=== PATIENT | male | born 1980 | race Caucasian/White ===

== ENCOUNTER 2018-09-13 14:38 | Emergency (ER) | payer BC ==
[2018-09-13 15:23] VITALS: BP 144/75
--- NOTE | 2018-09-13 15:25 | UC ---
FLU HPI - HPI Summary HPI Summary: Onset of fever x 3 days ago, associated with body aches. Yesterday, following his work day, he felt very weak and unwell. Hx of hypertension treated with bisoprolol. He has not taken his anti-hypertensive since yesterday morning, and has not chest pain or palpitations. Minimal cough, no sore throat, no nausea, vomiting, abdominal pain or diarrhea. No headache. - History of Current Complaint Chief Complaint: UCRespiratory Stated Complaint: FEVER Time Seen by Provider: 09/13/18 15:18 Hx Obtained From: Patient Onset/Duration: Gradual Onset, Lasting Days - 3 Severity Currently: Mild Severity Initially: Moderate Pain Intensity: 5 Associated Signs & Symptoms: Positive: Fever, Myalgia. Negative: Cough - no temp taken at home., Sore Throat, Nasal Congestion, Headache, Vomiting, Diarrhea - Risk Factors Influenza Risk Factors: Chronic Medical or Immunosuppresive Condition - Allergy/Home Medications Allergies/Adverse Reactions: Allergies Allergy/AdvReac Type Severity Reaction Status Date / Time mesalamine [From [facility]] Allergy Diarrhea Verified 09/13/18 15:20 omeprazole Allergy See Comment Verified 09/13/18 15:20 Home Medications: Home Medications Bisoprolol/Hydrochlorothiazide [Bisoprolol-Hctz 2.5-6.25 mg Tb] 1 tab DAILY [History Confirmed 09/13/18] sulfaSALAzine TAB* [Azulfidine TAB*] 2 tab DAILY 09/13/18 [History Confirmed ] PMH/Surg Hx/FS Hx/Imm Hx Cardiovascular History: Hypertension GI/ History: Other - Inflammatory bowel disease - Surgical History Surgical History: None - Family History Known Family History: Positive: Non-Contributory - Social History Occupation: Employed Full-time Alcohol Use: None Substance Use Type: None Smoking Status (MU): Former Smoker When Did the Patient Quit Smoking/Using Tobacco: 09/2014 Review of Systems All Other Systems Reviewed And Are Negative: Yes Constitutional: Positive: Fever, Fatigue Eyes: Positive: Negative ENT: Positive: Negative Respiratory: Positive: Negative Cardiovascular: Positive: Other - high heart rate; has maintained hydration, notably missed bisoprolol today Gastrointestinal: Negative: Abdominal Pain, Vomiting, Diarrhea Genitourinary: Positive: Negative. Negative: Dysuria, Frequency, Urgency Motor: Positive: Negative Neurovascular: Positive: Negative Musculoskeletal: Positive: Negative Neurological: Positive: Negative Psychological: Positive: Negative Is Patient Immunocompromised?: No Physical Exam Triage Information Reviewed: Yes Appearance: Ill-Appearing - looks mildly unwell, Obese Vital Signs: Initial Vital Signs Temp 99.2 F 09/13/18 15:21 Pulse 128 09/13/18 15:21 Resp 17 09/13/18 15:21 BP 144/75 09/13/18 15:21 Pulse Ox 95 09/13/18 15:21 Vital Signs Reviewed: Yes Eyes: Positive: Conjunctiva Clear ENT: Positive: Pharynx normal, TMs normal Neck: Positive: Supple, Nontender, No Lymphadenopathy Respiratory: Positive: Lungs clear, Normal breath sounds Cardiovascular: Positive: No Murmur, Tachycardia Abdomen Description: Positive: Nontender, No Organomegaly, Soft Musculoskeletal Exam: Normal Neurological: Positive: Alert, Muscle Tone Normal Psychological Exam: Normal Skin Exam: Normal Flu Course/Dx - Course Course Of Treatment: Continue symptomatic treatment of viral illness. To take antihypertensive medication today. - Differential Dx/Diagnosis Provider Diagnosis: Viral syndrome Discharge - Sign-Out/Discharge Documenting (check all that apply): Patient Departure All imaging exams completed and their final reports reviewed: No Studies - Discharge Plan Condition: Stable Disposition: HOME Patient Education Materials: Viral Syndrome (ED) Referrals: No Primary Care Phys,NOPCP [Primary Care Provider] - Additional Instructions: Continue use of medications to reduce symptoms, such as acetaminophen or Dayquil. Ensure that you take your bisoprolol today. Follow up if you develop increasing cough, shortness of breath, chest pain, or have a fever persisting beyond 2 more days. - Billing Disposition and Condition Condition: STABLE Disposition: Home
[2018-09-13 15:54] LABS: Influenza A Molecular NEGATIVE (Negative); Influenza B Molecular NEGATIVE (Negative)
== END 2018-09-13 16:03 | disposition home or self-care (01) ==
LOC: UCCORT 14:38
DX: B34.9 Viral infection, unspecified (principal); R53.1 Weakness; R05 Cough; M79.10 Myalgia, unspecified site; I10 Essential (primary) hypertension; K51.90 Ulcerative colitis, unspecified, without complications; Z88.8 Allergy status to other drugs, medicaments and biological substances; Z79.899 Other long term (current) drug therapy; Z87.891 Personal history of nicotine dependence
CPT/HCPCS: 99211; G0463